=== PATIENT | female | born 1970 | race Caucasian/White ===

== ENCOUNTER 2024-12-08 15:14 | Outpatient (RCR) | payer BC, SELFPAY | END 2025-01-08 14:18 | disposition home or self-care (01) | PROVIDERS: Visit Provider Family Medicine | DX: M17.0 Bilateral primary osteoarthritis of knee (principal); M21.161 Varus deformity, not elsewhere classified, right knee; M21.162 Varus deformity, not elsewhere classified, left knee; Z51.89 Encounter for other specified aftercare | CPT/HCPCS: 97112; 97161 ==